=== PATIENT | male | born 1930 | race Caucasian/White ===

== ENCOUNTER 2021-01-25 21:16 | Inpatient (IN) | payer OTHER ==
[~2021-01-25] VITALS: Ht 177.8 cm; Wt 71.4 kg
[2021-01-25 21:31] VITALS: BP 128/92
[2021-01-25 21:47] LABS: BASO # 0.1 10*3/uL (0.0-0.1); BASO % 0.4 % (0.0-1.0); EOS # 0.3 10*3/uL (0.0-0.4); EOS % 2.6 % (1.0-4.0); HEMATOCRIT 39.7 % (42.0-52.0); LYMPH # 2.2 10*3/uL (1.3-4.4); MEAN CORPUSCULAR HGB CONC 31.2 g/dl (33.0-37.0); MEAN PLATELET VOLUME 10.2 fl (9.6-12.3); MONO # 1.2 10*3/uL (0.1-1.0); NEUT # 8.3 10*3/uL (2.3-7.9); NEUT % 68.7 % (47.0-73.0); PLATELET COUNT AUTOMATED 224 10*3/uL (130-400); RED BLOOD COUNT 4.27 10*6/uL (4.50-5.90); RED CELL DISTRI WIDTH 12.9 % (0-14.5); WHITE BLOOD COUNT 12.1 10*3/uL (4.8-10.8)
[2021-01-25 22:04] LABS: ALBUMIN 3.2 gm/dl (3.1-4.5); ALKALINE PHOSPHATASE 99 U/L (45-117); BUN 16 mg/dl (7-24); CHLORIDE 109 mmol/L (98-107); CREATININE 1.28 mg/dL (0.70-1.30); POTASSIUM 4.5 mmol/L (3.5-5.1); SGOT/AST 18 IU/L (3-35); SGPT/ALT 16 U/L (12-78); SODIUM 140 mmol/L (136-145); TOTAL PROTEIN 7.3 gm/dL (6.4-8.2)
[2021-01-25] MEDS ORDERED: RIVASTIGMINE T4.5 M1 PO (23:17)
[2021-01-25] MEDS ORDERED: FINASTERIDE5 M1 PO (23:18)
[2021-01-25] MEDS ORDERED: CHLORDIAZEPOXID25 M1 PO (23:18)
[2021-01-25] MEDS ORDERED: ASPIRIN ADULT L81 M1 PO (23:19)
[2021-01-25] MEDS ORDERED: Pyridostigmine60 MG PO (23:19)
[2021-01-26] VITALS (7 sets, daily range): BP systolic 103–145; BP diastolic 40–81
[2021-01-26 06:49] LABS: BUN 15 mg/dl (7-24); CHLORIDE 112 mmol/L (98-107); CREATININE 1.17 mg/dL (0.70-1.30); IRON 75 ug/dL (65-175); POTASSIUM 4.3 mmol/L (3.5-5.1); SODIUM 140 mmol/L (136-145); TOTAL IRON BINDING CAPACITY 404 ug/dl (250-450)
[2021-01-26 07:09] LABS: BASO % 0.3 % (0.0-1.0); EOS # 0.3 10*3/uL (0.0-0.4); HEMATOCRIT 32.1 % (42.0-52.0); LYMPH # 3.2 10*3/uL (1.3-4.4); MEAN CELL VOLUME 93.3 fl (80.0-94.0); MEAN CORPUSCULAR HGB 29.1 pg (27.0-31.0); MEAN CORPUSCULAR HGB CONC 31.2 g/dl (33.0-37.0); MEAN PLATELET VOLUME 10.5 fl (9.6-12.3); MONO # 0.9 10*3/uL (0.1-1.0); MONO % 8.9 % (3.0-9.0); NEUT # 5.8 10*3/uL (2.3-7.9); NEUT % 56.6 % (47.0-73.0); PLATELET COUNT AUTOMATED 191 10*3/uL (130-400); RED BLOOD COUNT 3.44 10*6/uL (4.50-5.90); WHITE BLOOD COUNT 10.2 10*3/uL (4.8-10.8)
[2021-01-26 07:15] LABS: FERRITIN 35.4 ng/mL (22.0-322.0)
[2021-01-27] VITALS: BP 125/48
[2021-01-27 06:28] LABS: BASO % 0.3 % (0.0-1.0); EOS # 0.6 10*3/uL (0.0-0.4); EOS % 4.1 % (1.0-4.0); HEMATOCRIT 30.6 % (42.0-52.0); LYMPH # 2.7 10*3/uL (1.3-4.4); LYMPH % 18.8 % (27.0-41.0); MEAN CELL VOLUME 93.9 fl (80.0-94.0); MEAN CORPUSCULAR HGB 29.1 pg (27.0-31.0); MEAN PLATELET VOLUME 10.9 fl (9.6-12.3); MONO % 6.8 % (3.0-9.0); NEUT # 10.2 10*3/uL (2.3-7.9); NEUT % 69.7 % (47.0-73.0); PLATELET COUNT AUTOMATED 199 10*3/uL (130-400); RED BLOOD COUNT 3.26 10*6/uL (4.50-5.90); RED CELL DISTRI WIDTH 13.2 % (0-14.5); WHITE BLOOD COUNT 14.6 10*3/uL (4.8-10.8)
[2021-01-27 06:46] LABS: BUN 12 mg/dl (7-24); CHLORIDE 109 mmol/L (98-107); SODIUM 139 mmol/L (136-145)
[2021-01-27 08:00] VITALS: BP 131/50
[2021-01-27 16:00] VITALS: BP 144/77
[2021-01-27 20:00] VITALS: BP 134/54
[2021-01-28] VITALS: BP 134/47
[2021-01-28 06:11] LABS: BASO % 0.3 % (0.0-1.0); EOS # 0.6 10*3/uL (0.0-0.4); HEMATOCRIT 28.5 % (42.0-52.0); LYMPH % 30.9 % (27.0-41.0); MEAN CELL VOLUME 94.4 fl (80.0-94.0); MEAN CORPUSCULAR HGB 29.1 pg (27.0-31.0); MEAN CORPUSCULAR HGB CONC 30.9 g/dl (33.0-37.0); MONO % 10.7 % (3.0-9.0); NEUT % 51.8 % (47.0-73.0); PLATELET COUNT AUTOMATED 190 10*3/uL (130-400); RED BLOOD COUNT 3.02 10*6/uL (4.50-5.90); RED CELL DISTRI WIDTH 13.2 % (0-14.5); WHITE BLOOD COUNT 9.7 10*3/uL (4.8-10.8)
[2021-01-28 08:00] VITALS: BP 115/48
[2021-01-28 12:00] VITALS: BP 111/52
[2021-01-28] MEDS ORDERED: FEROSUL325 MG PO (12:56)
[2021-01-28 16:00] VITALS: BP 105/50
== END 2021-01-28 16:07 | disposition home health service (06) | DRG 377 ==
LOC: ED 21:16 → 5E 22:23 → EDHOLD 22:23 → 5E 23:58
PROVIDERS: Internal Medicine; Social Worker Clinical; ADMIT Family Medicine; ATTEND Family Medicine
PROC: 3E0H8GC Introduction of Other Therapeutic Substance into Lower GI, Via Natural or Artificial Opening Endoscopic (ICD-10-PCS; principal; 2021-01-26)
DX: K57.31 Diverticulosis of large intestine without perforation or abscess with bleeding (principal); G93.41 Metabolic encephalopathy; E44.1 Mild protein-calorie malnutrition; N17.9 Acute kidney failure, unspecified; D64.9 Anemia, unspecified; F03.90 Unspecified dementia, unspecified severity, without behavioral disturbance, psychotic disturbance, mood disturbance, and anxiety; G70.00 Myasthenia gravis without (acute) exacerbation; N40.0 Benign prostatic hyperplasia without lower urinary tract symptoms; F41.1 Generalized anxiety disorder; R91.8 Other nonspecific abnormal finding of lung field; Z66 Do not resuscitate; Z51.5 Encounter for palliative care; N18.9 Chronic kidney disease, unspecified; D72.829 Elevated white blood cell count, unspecified; E87.8 Other disorders of electrolyte and fluid balance, not elsewhere classified; R73.9 Hyperglycemia, unspecified; E83.41 Hypermagnesemia; Z53.1 Procedure and treatment not carried out because of patient's decision for reasons of belief and group pressure; Z85.828 Personal history of other malignant neoplasm of skin; Z87.891 Personal history of nicotine dependence; Z82.3 Family history of stroke; Z79.82 Long term (current) use of aspirin; Z79.899 Other long term (current) drug therapy; Z68.22 Body mass index [BMI] 22.0-22.9, adult